=== PATIENT | male | born 1940 | race Two or more races ===

== ENCOUNTER 2021-06-01 19:39 | Inpatient (IN) | payer MEDICARE, MEDICAID ==
[~2021-06-01] VITALS: Ht 172.7 cm; Wt 68.4 kg
[~2021-06-01 19:39] MED LIST: AMOX-291 PO; CARV6.252 PO; CLAR-14 PO; DOCU-131 PO; LISI-167 PO; MAGN400O7 PO; OMEP-110 PO; OXYC5TAB98 PO; POLY17PO5 PO
--- NOTE | 2021-06-01 19:46 | NUR ---
biba from halfway for GLF, per pt slight headache, no other trauma noted, no midline cervical tenderness, no LOC or blood thinners. pt also has occassional cough, rhonchi heard in lungs. ASHLIE Quinonez at bedside for eval.
[2021-06-01 20:01] LABS: BASOPHILS % (AUTO) 1 % (0-1); EOSINOPHILS % (AUTO) 5 % (1-7); LYMPHOCYTES % (AUTO) 10 % (22-44); MEAN CORPUSCULAR HEMOGLOBIN 29.7 pg (27.5-34.5); MEAN CORPUSCULAR HGB CONC 32.6 g/dL (33.2-36.2); MEAN PLATELET VOLUME 7.8 fL (7.4-10.4); MONOCYTES % (AUTO) 7 % (2-9); NEUTROPHILS % (AUTO) 78 % (42-75); PLATELET COUNT 230 x10^3/uL (130-400); RED BLOOD COUNT 4.08 x10^6/uL (4.38-5.82); RED CELL DISTRIBUTION WIDTH 13.8 % (9.4-14.8)
--- NOTE | 2021-06-01 20:04 | NUR ---
pt taken to ct at this time
[2021-06-01 20:09] LABS: ALANINE AMINOTRANSFERASE 17 U/L (12-78); ALBUMIN 3.2 g/dL (3.4-5.0); ANION GAP 7 mmol/L (5-15); CALCIUM 8.5 mg/dL (8.5-10.1); CHLORIDE 103 mmol/L (98-107); CREATININE 1.72 mg/dL (0.7-1.3)
[2021-06-01 20:14] LABS: ALKALINE PHOSPHATASE 29 U/L (45-117); BILIRUBIN,TOTAL 0.5 mg/dL (0.2-1.0); TOTAL PROTEIN 6.7 g/dL (6.4-8.2); TROPONIN I < 0.015 ng/mL (0.000-0.045)
--- NOTE | 2021-06-01 20:21 | NUR ---
pt back from ct at this time, gaby snell.
[2021-06-01] MEDS ORDERED: AZITHROMYCIN 500 MG in SODIUM CHLORIDE 0.9% 250 ML IVPB ONE (21:00)
[2021-06-01] MEDS ORDERED: methylPREDNISolone SOD SUCC 125 MG/2 ML IV ONE (21:00)
[2021-06-01] MEDS ORDERED: CEFTRIAXONE 1,000 MG in DEXTROSE 5% 50 ML IVPB ONE (21:00)
[2021-06-01] MEDS ORDERED: ALBUTEROL/IPRATROPIUM 2.5MG/0.5MG, 3 ML NPPB SCH (21:00)
[2021-06-01] MEDS ORDERED: methylPREDNISolone SOD SUCC 125 MG/2 ML ONE (21:33)
[2021-06-01] MEDS ORDERED: ALBUTEROL/IPRATROPIUM 2.5MG/0.5MG, 3 ML ONE (21:34)
--- NOTE | 2021-06-01 21:45 | NUR ---
duoneb tx in process, pt tolerating well. gema Quinonez at bedside to discuss poc with pt
--- NOTE | 2021-06-01 22:31 | NUR ---
[facility] at bedside for eval
[2021-06-01] MEDS ORDERED: POLYETHYLENE GLYCOL 17 GM PACKET PO PRN (23:00)
[2021-06-01] MEDS ORDERED: ONDANSETRON 2MG/ML, 2ML IVPush PRN (23:00)
[2021-06-01] MEDS ORDERED: hydrALAzine 20 MG/ML, 1ML IVPush PRN (23:00)
[2021-06-01] MEDS ORDERED: ONDANSETRON ODT 4 MG PO PRN (23:00)
[2021-06-01] MEDS: SODIUM CHLORIDE 0.9% 1,000 ML IV SCH (23:00)
[2021-06-01] MEDS ORDERED: ACETAMINOPHEN 325 MG TABLET PO PRN (23:00)
[2021-06-01] MEDS ORDERED: BISACODYL 10 MG SUPP PR PRN (23:00)
[2021-06-01] MEDS ORDERED: BENZONATATE 100 MG CAPSULE PO PRN (23:00)
[2021-06-01] MEDS ORDERED: DOCUSATE 100 MG CAPSULE PO PRN (23:00)
[2021-06-01] MEDS ORDERED: MELATONIN 5 MG TABLET PO PRN (23:00)
[2021-06-01] MEDS: HEPARIN 5,000 UNITS/ML, 1ML SQ SCH (23:00)
[2021-06-02 00:19] VITALS: BP 140/76
[2021-06-02] MEDS: GUAIFENESIN ER 600 MG TABLET PO SCH ×3 (00:27→20:24)
[2021-06-02] MEDS: AZITHROMYCIN 500 MG in SODIUM CHLORIDE 0.9% 250 ML IV SCH (00:27)
[2021-06-02] MEDS: HEPARIN 5,000 UNITS/ML, 1ML SQ SCH ×4 (00:28→23:00)
[2021-06-02] MEDS ORDERED: methylPREDNISolone SOD SUCC 125 MG/2 ML IVPush SCH ×2 (06:00→21:00)
[2021-06-02 08:06] LABS: BASOPHILS % (AUTO) 0 % (0-1); EOSINOPHILS % (AUTO) 0 % (1-7); LYMPHOCYTES % (AUTO) 11 % (22-44); MEAN CORPUSCULAR HEMOGLOBIN 29.9 pg (27.5-34.5); MONOCYTES % (AUTO) 1 % (2-9); NEUTROPHILS % (AUTO) 88 % (42-75); PLATELET COUNT 230 x10^3/uL (130-400); RED CELL DISTRIBUTION WIDTH 14.1 % (9.4-14.8)
[2021-06-02 08:18] LABS: ANION GAP 7 mmol/L (5-15); CALCIUM 8.3 mg/dL (8.5-10.1); CHLORIDE 106 mmol/L (98-107); CREATININE 1.36 mg/dL (0.7-1.3)
[2021-06-02 08:52] VITALS: BP 139/79
[2021-06-02] MEDS: SODIUM CHLORIDE 0.9% 1,000 ML IV SCH ×2 (08:53→20:25)
[2021-06-02] MEDS: ALBUTEROL-IPRATROPIUM MDI INH INH SCH ×5 (08:54→20:24)
[2021-06-02 14:00] VITALS: BP 134/64
[2021-06-02] MEDS: CEFTRIAXONE 2 GM in DEXTROSE 5% 50 ML IVPB SCH (17:36)
[2021-06-02 18:52] LABS: MICROSCOPIC AUTO
[2021-06-02 18:56] VITALS: BP 97/47
[2021-06-02] MEDS ORDERED: CEFTRIAXONE 1,000 MG in DEXTROSE 5% 50 ML IVPB SCH (21:00)
[2021-06-03] MEDS: AZITHROMYCIN 500 MG in SODIUM CHLORIDE 0.9% 250 ML IV SCH (00:03)
[2021-06-03 00:34] VITALS: BP 162/87
[2021-06-03] MEDS: ALBUTEROL-IPRATROPIUM MDI INH INH SCH ×4 (04:52→21:00)
[2021-06-03 06:31] LABS: BASOPHILS % (AUTO) 0 % (0-1); EOSINOPHILS % (AUTO) 0 % (1-7); LYMPHOCYTES % (AUTO) 7 % (22-44); MEAN CORPUSCULAR HEMOGLOBIN 29.8 pg (27.5-34.5); MEAN CORPUSCULAR HGB CONC 32.3 g/dL (33.2-36.2); MEAN PLATELET VOLUME 9.2 fL (7.4-10.4); MONOCYTES % (AUTO) 4 % (2-9); NEUTROPHILS % (AUTO) 89 % (42-75); PLATELET COUNT 247 x10^3/uL (130-400); RED BLOOD COUNT 4.11 x10^6/uL (4.38-5.82); RED CELL DISTRIBUTION WIDTH 14.2 % (9.4-14.8)
[2021-06-03] MEDS: HEPARIN 5,000 UNITS/ML, 1ML SQ SCH ×5 (07:00→21:35)
[2021-06-03 07:35] LABS: ANION GAP 8 mmol/L (5-15); CALCIUM 8.9 mg/dL (8.5-10.1); CHLORIDE 108 mmol/L (98-107)
[2021-06-03 07:55] VITALS: BP 173/91
[2021-06-03] MEDS: GUAIFENESIN ER 600 MG TABLET PO SCH ×2 (08:31→21:35)
[2021-06-03] MEDS: LISINOPRIL 10 MG TABLET PO SCH ×2 (10:31→21:35)
[2021-06-03] MEDS: SODIUM CHLORIDE 0.9% 1,000 ML IV SCH ×2 (10:57→20:00)
[2021-06-03 12:10] VITALS: BP 136/67
[2021-06-03] MEDS: CEFTRIAXONE 2 GM in DEXTROSE 5% 50 ML IVPB SCH (14:04)
[2021-06-03 14:25] VITALS: BP 124/60
[2021-06-03] MEDS: CARVEDILOL 6.25 MG TABLET PO SCH (17:07)
[2021-06-03 20:27] VITALS: BP 129/68
[2021-06-03 21:36] VITALS: BP 129/65
[2021-06-04] MEDS: AZITHROMYCIN 500 MG in SODIUM CHLORIDE 0.9% 250 ML IV SCH (00:06)
[2021-06-04 01:53] VITALS: BP 115/68
[2021-06-04] MEDS: HEPARIN 5,000 UNITS/ML, 1ML SQ SCH ×2 (05:00→12:22)
[2021-06-04] MEDS: ALBUTEROL-IPRATROPIUM MDI INH INH SCH ×3 (07:07→15:03)
[2021-06-04] MEDS: CARVEDILOL 6.25 MG TABLET PO SCH (07:07)
[2021-06-04 07:49] VITALS: BP 127/82
[2021-06-04] MEDS: LISINOPRIL 10 MG TABLET PO SCH (07:51)
[2021-06-04] MEDS: GUAIFENESIN ER 600 MG TABLET PO SCH (07:51)
[2021-06-04 09:15] LABS: BASOPHILS % (AUTO) 1 % (0-1); EOSINOPHILS % (AUTO) 1 % (1-7); LYMPHOCYTES % (AUTO) 14 % (22-44); MEAN CORPUSCULAR HEMOGLOBIN 30.2 pg (27.5-34.5); MEAN CORPUSCULAR HGB CONC 33.2 g/dL (33.2-36.2); MEAN PLATELET VOLUME 8.3 fL (7.4-10.4); MONOCYTES % (AUTO) 8 % (2-9); NEUTROPHILS % (AUTO) 77 % (42-75); PLATELET COUNT 258 x10^3/uL (130-400); RED BLOOD COUNT 4.31 x10^6/uL (4.38-5.82); RED CELL DISTRIBUTION WIDTH 14.6 % (9.4-14.8)
[2021-06-04 09:27] LABS: ALANINE AMINOTRANSFERASE 17 U/L (12-78); ALBUMIN 2.8 g/dL (3.4-5.0); ANION GAP 7 mmol/L (5-15); CHLORIDE 109 mmol/L (98-107); CREATININE 1.05 mg/dL (0.7-1.3)
[2021-06-04 09:29] LABS: ALKALINE PHOSPHATASE 28 U/L (45-117); BILIRUBIN,TOTAL 0.5 mg/dL (0.2-1.0); TOTAL PROTEIN 6.4 g/dL (6.4-8.2)
[2021-06-04] MEDS: SODIUM CHLORIDE 0.9% 1,000 ML IV SCH (10:02)
[2021-06-04 12:01] VITALS: BP 133/69
[2021-06-04] MEDS ORDERED: CEFD300C37 PO (12:23)
[2021-06-04] MEDS ORDERED: DOXY100C2 PO (12:24)
[2021-06-04] MEDS: CEFTRIAXONE 2 GM in DEXTROSE 5% 50 ML IVPB SCH (15:03)
== END 2021-06-04 16:24 | disposition home or self-care (01) | DRG 193 ==
LOC: ED 23:43 → EDIP 23:44 → 4WST 23:50
PROVIDERS: ADMIT Internal Medicine; ATTEND Hospitalist
DX: J18.9 Pneumonia, unspecified organism (principal); J96.01 Acute respiratory failure with hypoxia; N17.9 Acute kidney failure, unspecified; F17.210 Nicotine dependence, cigarettes, uncomplicated; I10 Essential (primary) hypertension; T38.0X5A Adverse effect of glucocorticoids and synthetic analogues, initial encounter; Z20.822 Contact with and (suspected) exposure to COVID-19; R55 Syncope and collapse
CPT/HCPCS: 36415; 70450; 71045; 80048; 80053; 81001; 83605; 83735; 83880; 84145; 84484; 85025; 87040; 87077; 87086; 93005; 96365; 96366; 96375; 99285; G0378; J0456; J0696; J1644; U0005; J0360; J2930; J7030; J7050; U0003